=== PATIENT | female | born 2000 | race Caucasian/White ===

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

== ENCOUNTER 2021-06-24 02:49 | Emergency (ER) | payer MEDICAID ==
[~2021-06-24] VITALS: Ht 160 cm; Wt 136.4 kg
[~2021-06-24 02:49] MED LIST changes: +CEPH-264 PO
[2021-06-24] MEDS ORDERED: IV NORMAL SALINE 1000ML BAG 1,000 ML IV ONE ×2 (03:00→03:30)
[2021-06-24] MEDS ORDERED: ONDANSETRON PF 4 MG/2 ML VIAL. IVP ONE (03:00)
--- NOTE | 2021-06-24 03:01 | PHYS DOC ---
Past Medical History Past Medical History: No Pertinent History Past Surgical History: Tonsillectomy Smoking Status: Never Smoker Alcohol Use: None Drug Use: None Adult General HPI HPI 20-year-old female who is otherwise healthy presents for evaluation of rapid heart rate and anxiety in the aftermath of eating a marijuana edible re creationally for the first time a couple of hours prior to arrival. Patient states she is an occasional user of cannabis but had never tried an edible before. Ate what sounds like a prepackaged candy edible (probably 10 mg of THC). Then began feeling very anxious. [place] like she could not catch her breath and called EMS for help. When EMS arrived on scene patient's heart rate was very elevated but she was also very anxious. They felt she was in PSVT and had her do some vagal maneuvers; sounds as though heart rate was variable on scene. It remains rapid but variable here. Patient endorses some mild chest pressure but denies chest pain. She is alert, oriented and pleasantly interactive. Appears anxious here. Denies other substance use tonight. Review of Systems Review of Systems A 12 point review of systems was completed and was negative except where noted in HPI above. Current Medications Current Medications Current Medications Medications (Trade) Dose Ordered Sig/Yenni Start Time Stop Time Status Last Admin Dose Admin Lorazepam (Ativan Inj) 0.5 mg 1X ONCE 06/24/21 03:00 06/24/21 03:01 DC 06/24/21 03:46 0.5 MG Ondansetron HCl (Zofran) 4 mg 1X ONCE 06/24/21 03:00 06/24/21 03:01 DC 06/24/21 03:46 4 MG Sodium Chloride 1,000 ml @ 1,000 mls/hr 1X ONCE 06/24/21 03:30 06/24/21 04:29 DC Allergies Allergies Allergies Coded Allergies Type Severity Reaction Last Updated Verified No Known Drug Allergies 07/05/13 No Physical Exam Physical Exam 20-year-old female appearing nontoxic and in no acute distress. She appears anxious. Head is normocephalic and atraumatic. Neck is supple and nontender. Oropharynx is moist. Lungs are clear to auscultation at all stations. There is a normal S1 and S2 without rubs or gallops and capillary refill is appropriate, less than 2 seconds globally. There is a tachycardic, regular rhythm. Abdomen is soft, nontender and nondistended. Skin is warm and dry without cyanosis, clubbing or edema. Psychiatrically, the patient demonstrates appropriate mood and affect and is alert. Evaluation of the extremities reveals BUEs and BLEs neurovascularly intact distally with strength out of 5, sensation intact light touch in all nerve distributions, radial, DP and PT pulses 2+ and equal bilaterally, capillary refill less than 2 seconds, hands and feet warm and well- perfused. No dependent peripheral edema distally. No calf tenderness or swelling bilaterally. Homans test is negative bilaterally. Current Patient Data Vital Signs Vital Signs Date Time Temp Pulse Resp B/P (MAP) Pulse Ox O2 Delivery O2 Flow Rate FiO2 06/24/21 02:50 97.4 140 24 141/89 (106) 98 Room Air 97.4 Lab Values Laboratory Tests Test 06/24/21 03:11 White Blood Count 15.0 x10^3/uL (4.0-11.0) H Red Blood Count 4.98 x10^6/uL (3.50-5.40) Hemoglobin 12.6 g/dL (12.0-15.5) Hematocrit 38.7 % (36.0-47.0) Mean Corpuscular Volume 78 fL (79-100) L Mean Corpuscular Hemoglobin 25 pg (25-35) Mean Corpuscular Hemoglobin Concent 33 g/dL (31-37) Red Cell Distribution Width 15.0 % (11.5-14.5) H Platelet Count 365 x10^3/uL (140-400) Neutrophils (%) (Auto) 64 % (31-73) Lymphocytes (%) (Auto) 29 % (24-48) Monocytes (%) (Auto) 5 % (0-9) Eosinophils (%) (Auto) 1 % (0-3) Basophils (%) (Auto) 1 % (0-3) Neutrophils # (Auto) 9.5 x10^3/uL (1.8-7.7) H Lymphocytes # (Auto) 4.4 x10^3/uL (1.0-4.8) Monocytes # (Auto) 0.7 x10^3/uL (0.0-1.1) Eosinophils # (Auto) 0.2 x10^3/uL (0.0-0.7) Basophils # (Auto) 0.2 x10^3/uL (0.0-0.2) Sodium Level 137 mmol/L (136-145) Potassium Level 3.4 mmol/L (3.5-5.1) L Chloride Level 101 mmol/L (98-107) Carbon Dioxide Level 25 mmol/L (21-32) Anion Gap 11 (6-14) Blood Urea Nitrogen 15 mg/dL (7-20) Creatinine 0.8 mg/dL (0.6-1.0) Estimated GFR (Cockcroft-Gault) 92.4 BUN/Creatinine Ratio 19 (6-20) Glucose Level 156 mg/dL (70-99) H Calcium Level 9.0 mg/dL (8.5-10.1) Total Bilirubin 0.2 mg/dL (0.2-1.0) Aspartate Amino Transferase (AST) 15 U/L (15-37) Alanine Aminotransferase (ALT) 26 U/L (14-59) Alkaline Phosphatase 122 U/L (46-116) H Troponin I High Sensitivity 4 ng/L (4-50) Total Protein 8.0 g/dL (6.4-8.2) Albumin 3.3 g/dL (3.4-5.0) L Albumin/Globulin Ratio 0.7 (1.0-1.7) L Serum Test, Qualitative Negative (NEG) Salicylates Level 0.6 mg/dL (2.8-20.0) L Salicylate Last Dose Date Salicylate Last Dose Time Acetaminophen Level < 2 mcg/ml (10-30) L Acetaminophen Last Dose Date Acetaminophen Last Dose Time Ethyl Alcohol Level < 10 mg/dL (0-10) Laboratory Tests 06/24/21 03:11 Laboratory Tests 06/24/21 03:11 EKG EKG Sinus rhythm, rate 139, no acute ST elevation or depression, [place] 154, QRS 84, QTc 425, EP interpretation. Nonischemic tracing, intervals appropriate. Radiology/Procedures Radiology/Procedures [] Course & Med Decision Making Course & Med Decision Making We will check labs and EKG as noted and give IV fluids, medication for nausea and a small dose of IV Ativan. We will allow the patient to rest and sober and will then reevaluate. 0500: Labs and EKG are nonacute. Heart rate has slowed down significantly after IV fluids and a small dose of Ativan. Heart rate is down below 100 on the monitoring tech while patient is resting. Patient states she feels much, much better. No evidence of emergency condition has been identified. Will discharge home to follow-up very closely with primary care in the next 2 to 4 days. Patient understands that if she feels worse instead of better or develops other new symptoms of concern that she will need to return to the emergency department immediately for reevaluation. All questions are answered. Dragon Disclaimer Dragon Disclaimer This electronic medical record was generated, in whole or in part, using a voice recognition dictation system. Departure Departure Impression: Primary Impression: Cannabis overdose Disposition: HOME / SELF CARE / HOMELESS Condition: IMPROVED Referrals: Shala LEE MD (PCP) Patient Instructions: Marijuana Abuse-Brief Additional Instructions: Follow-up very closely with your primary care doctor in the office in the next 2 to 4 days for a reevaluation of your symptoms and a discussion of next best steps in care. Drink plenty of fluids to stay hydrated and get plenty of rest. Do not use illegal drugs to reduce serious risks to your health. Return to the emergency department right away for worsening symptoms of any kind or with any other new symptoms of concern. Problem Qualifiers Primary Impression: Cannabis overdose Encounter type: initial encounter Injury intent: accidental or unintentional Qualified Codes: T40.711A - Poisoning by cannabis, accidental (unintentional), initial encounter DARY GONZALEZ MD Jun 24, 2021 03:01
[2021-06-24 03:21] LABS: BASO # 0.2 x10^3/uL (0.0-0.2); BASO % 1 % (0-3); EOS # 0.2 x10^3/uL (0.0-0.7); EOS % 1 % (0-3); HEMATOCRIT 38.7 % (36.0-47.0); HEMOGLOBIN 12.6 g/dL (12.0-15.5); LYMPH # 4.4 x10^3/uL (1.0-4.8); LYMPH % 29 % (24-48); MEAN CORPUSCULAR HEMOGLOBIN 25 pg (25-35); MEAN CORPUSCULAR HGB CONC 33 g/dL (31-37); MEAN CORPUSCULAR VOLUME 78 fL (79-100); MONO # 0.7 x10^3/uL (0.0-1.1); MONO % 5 % (0-9); NEUT # 9.5 x10^3/uL (1.8-7.7); NEUT % 64 % (31-73); PLATELET COUNT 365 x10^3/uL (140-400); RED BLOOD COUNT 4.98 x10^6/uL (3.50-5.40)
--- NOTE | 2021-06-24 03:38 | EKG ---
[facility] [address] [place] [address] Test Date: 2021-06-24 Test Time: 02:56:28 Pat Name: RENA RUSSO Department: Room: Gender: F [employer] Skating Instructor: : 2000 Requested By: DARY GONZALEZ Order Number: [id number] Reading MD: Skip Parekh Measurements Intervals [place] Rate: 139 P: -2 [place]: 154 QRS: 47 QRSD: 84 T: 45 QT: 276 QTc: 425 Interpretive Statements SINUS TACHYCARDIA Electronically Signed On 06-26-2021 18:22:27 CDT by Skip Parekh
[2021-06-24 03:46] LABS: CREATININE 0.8 mg/dL (0.6-1.0); GFR 92.4; POTASSIUM 3.4 mmol/L (3.5-5.1); PREG TEST PT QUAL NEGATIVE (NEG)
[2021-06-24 03:52] LABS: ALBUMIN 3.3 g/dL (3.4-5.0); ALBUMIN/GLOBULIN RATIO 0.7 (1.0-1.7); TOTAL BILIRUBIN 0.2 mg/dL (0.2-1.0)
[2021-06-24 03:55] LABS: ACETAMIN < 2 mcg/ml (10-30); ETHANOL < 10 mg/dL (0-10); SALIC 0.6 mg/dL (2.8-20.0)
[2021-06-24 05:30] VITALS: BP 128/78
== END 2021-06-24 05:41 | disposition home or self-care (01) ==
LOC: ER 02:49
DX: T40.711A Poisoning by cannabis, accidental (unintentional), initial encounter (principal); R00.0 Tachycardia, unspecified; F41.9 Anxiety disorder, unspecified; Y92.89 Other specified places as the place of occurrence of the external cause
CPT/HCPCS: 36415; 80053; 80329; 84484; 84703; 85025; 93005; 96361; 96374; 96375; 99284; G0480; J2060; J2405; J7030